=== PATIENT | female | born 1985 | race Caucasian/White ===

== ENCOUNTER 2019-08-23 15:20 | Emergency (ER) | payer SELFPAY ==
[~2019-08-23] VITALS: Ht 165 cm; Wt 103.3 kg
[2019-08-23] MEDS ORDERED: LIDOCAINE 1% INJ 20 ML 20 ML VIAL ONE (15:34)
[2019-08-23] MEDS ORDERED: LIDOCAINE 1% INJ 20 ML 20 ML VIAL INJ ONE (15:45)
[2019-08-23] MEDS ORDERED: TETANUS,DIPTH,PERTUSS P/F (BOOSTRIX) 0.5 ML VIAL IM ONE (15:45)
--- NOTE | 2019-08-23 16:02 | ED Upper Extremity ---
General Chief Complaint: Upper Extremity Stated Complaint: SMASHED FINGER Nursing Triage Note: Shut R first finger in car door and has small laceration on R index finger. Nursing Sepsis Screen: No Definite Risk History of Present Illness Date Seen by Provider: Aug 23, 2019 Time Seen by Provider: 16:00 Initial Comments Patient presenting to emergency department for evaluation of right index finger injury after she actually slammed her finger in a car door. There is obvious laceration to the pad of her finger and did the subungual hematoma as well. She does not think her tetanus is up-to-date so it will be updated here. Allergies and Home Medications Allergies Coded Allergies: No Known Drug Allergies (Unverified , 08/23/19) Patient Home Medication List Home Medication List Reviewed: Yes Review of Systems Constitutional: no symptoms reported Musculoskeletal: joint pain Skin: other (laceration) Psychiatric/Neurological: Denies Numbness, Denies Paresthesia Past Ywkgify-Qpbmjy-Svfsxb Hx Patient Social History Alcohol Use: Denies Use Recreational Drug Use: No Smoking Status: Current Everyday Smoker 2nd Hand Smoke Exposure: Yes Recent Foreign Travel: No Contact w/Someone Who Travel: No Recent Infectious Disease Expo: No Recent Hopitalizations: No Physical Abuse: No Sexual Abuse: No Mistreated: No Fear: No Seasonal Allergies Seasonal Allergies: No Past Medical History Surgeries: Yes Appendectomy Respiratory: No Cardiac: No Neurological: No Genitourinary: No Gastrointestinal: No Musculoskeletal: No Endocrine: No HEENT: No Cancer: No Psychosocial: No Integumentary: No Blood Disorders: No Adverse Reaction/Blood Tranf: No Physical Exam Vital Signs Vital Signs - First Documented 08/23/19 15:34 Temp 36.1 Pulse 87 Resp 16 B/P (MAP) 129/87 (101) Pulse Ox 97 Capillary Refill : Less Than 3 Seconds Height, Weight, BMI Height: '" Weight: lbs. oz. kg; 37.00 BMI Method: General Appearance: WD/WN, no apparent distress Hand: laceration (approximate 1.5 cm horizontal laceration to the pad of right index finger. There was debris and contamination in the wound appeared to be either piece of dirt or paint. Deeper structures including adipose and compartments visualized. No tendon visualized. There is approximately 25% subungual hematoma to the associated finger. Full flexion and extension of digits is intact with intact sensation and cap refill.) Neurologic/Tendon: normal sensation, normal motor functions, normal tendon functions Procedures/Interventions Wound Location: Upper Extremities Wound Length (cm): 1.5 Wound's Depth, Shape: sub Q Wound Explored: foreign body removed Irrigated w/ Saline (ccs): 1000 Betadine Prep?: Yes Anesthesia: 1% Lidocaine (digital block) Volume Anesthetic (ccs): 4 Wound Debrided: moderate Suture: Monocryl (4-0) Suture Size: 4-0 Number of Sutures: 4 Layer Closure?: 1 Sterile Dressing Applied?: Yes Progress Wound prepped and draped in normal sterile fashion and a digital block was performed and then wound was irrigated extensively under pressure with approximately 1 L of saline. Wound cleansed with chlorhexidine. 4-0 Monocryl was used and I tried to go to keep into the compartments while closing the l aceration. Progress/Results/Core Measures Results/Orders My Orders Orders - OSKAR ANDREWS DO Lidocaine 1% Inj 20 Ml (Xylocaine 1% Inj (08/23/19 15:45) Dipht,Pertuss(Acell),Tet Adult (Boostrix (08/23/19 15:45) Finger(S) (08/23/19 15:34) Lidocaine 1% Inj 20 Ml (Xylocaine 1% Inj (08/23/19 15:34) Medications Given in ED Current Medications Medications Dose Ordered Sig/Paul Route Start Time Stop Time Status Last Admin Dose Admin Diphtheria/ Tetanus/Acell Pertussis 0.5 ml ONCE ONCE IM 08/23/19 15:45 08/23/19 15:46 DC 08/23/19 16:05 0.5 ML Lidocaine HCl 10 ml ONCE ONCE INJ 08/23/19 15:45 08/23/19 15:46 DC 08/23/19 15:56 10 ML Vital Signs/I&O 08/23/19 15:34 Temp 36.1 Pulse 87 Resp 16 B/P (MAP) 129/87 (101) Pulse Ox 97 Blood Pressure Mean: 101 POS Progress Progress Note : Progress Note Contaminated wound was cleansed and irrigated and appears to be no retained foreign body or tendon injury. I told her to put ice on her pad as this could get quite swollen and there is don't structures in the compartments of pad. Recommended elevating her digit as well and ibuprofen as needed for pain. She was told to follow with primary care provider within 2-3 days to recheck for signs of infection and to return to the emergency department if needed for any concerns patient aware and agreeable with plan and verbalized understanding of the above instructions. Departure Impression Primary Impression: Laceration of finger Qualified Codes: S61.320A - Laceration with foreign body of right index finger with damage to nail, initial encounter Disposition: 01 HOME, SELF-CARE Condition: Stable Departure-Patient Inst. Patient Instructions: Laceration Repair With Stitches (DC) OSKAR ANDREWS DO Aug 23, 2019 16:02 POS
--- NOTE | 2019-08-23 16:06 | Diagnostic Imaging Report ---
INDICATION: Smashed finger, injury. COMPARISON: None available. TECHNIQUE: Three radiographs centered upon of the right hand 2nd digit dated August 23, 2019. FINDINGS: No acute fracture or dislocation. No destructive osseous process. No suspicious radiopaque foreign body. IMPRESSION: No acute osseous abnormality or suspicious radiopaque foreign body. Dictated by: Dictated on workstation # [id number]
[2019-08-23 16:23] VITALS: BP 120/76
== END 2019-08-23 16:22 | disposition home or self-care (01) ==
LOC: ER FS 15:22
DX: S61.320A Laceration with foreign body of right index finger with damage to nail, initial encounter (principal); F17.200 Nicotine dependence, unspecified, uncomplicated; Z90.49 Acquired absence of other specified parts of digestive tract; W23.0XXA Caught, crushed, jammed, or pinched between moving objects, initial encounter
CPT/HCPCS: 12001; 29130; 73140; 90471; 90715

== ENCOUNTER 2022-08-31 19:36 | Emergency (ER) | payer BC ==
[~2022-08-31] VITALS: Ht 165 cm; Wt 155.6 kg
[2022-08-31 19:42] VITALS: BP 150/102
[2022-08-31] MEDS ORDERED: AUGMENTIN 875 MG TAB (AMOXICILLIN/CLAVULANATE) PO SCH (20:15)
[2022-08-31] MEDS ORDERED: HYDROcodone/APAP 5 MG/325 MG (LORTAB) TAB PO ONE (20:15)
[2022-08-31] MEDS ORDERED: PENI500T PO (20:19)
[2022-08-31] MEDS ORDERED: ACHD5005 PO (20:19)
--- NOTE | 2022-08-31 20:19 | ED EENT ---
History of Present Illness General Chief Complaint: Dental Problems/Pain Stated Complaint: TOOTH PAIN,SWELLING Nursing Triage Note: PATIENT VERBALIZED RIGHT BACK TOOTH ACHE, STATES STARTED THREE DAYS AGO, DENTISIT CANT SEE PATIENT UNTIL WEDNESDAY. RT SIDE FACE SWOLLEN, EYE, STATES RUNNING A FEVER AT HOME 101. Source: patient Exam Limitations: no limitations History of Present Illness Date Seen by Provider: Aug 31, 2022 Time Seen by Provider: 19:45 Initial Comments Patient is a 37-year-old female presents with right upper incisor dental pain/tenderness for the past 3 days. Pain is moderate to severe nonradiating. No dysphonia drooling or trismus. Patient has an appointment with her dentist in 2 days. No other symptoms or complaints Timing/Duration: gradual Severity: severe Location: facial, dental Prearrival Treatment: other Modifying Factors: Improves With Other Associated Symptoms: other Allergies and Home Medications Allergies Coded Allergies: No Known Drug Allergies (Unverified , 08/23/19) Patient Home Medication List Home Medication List Reviewed: Yes Review of Systems Review of Systems Constitutional: see HPI Eyes: See HPI Ears: See HPI Nose: see HPI Mouth: see HPI Past Emjzanm-Fwlkoh-Lzhlzd Hx Patient Social History Tobacco Use?: No Seasonal Allergies Seasonal Allergies: No Past Medical History Surgeries: Yes Appendectomy Respiratory: No Cardiac: No Neurological: No Genitourinary: No Gastrointestinal: No Musculoskeletal: No Endocrine: No HEENT: No Cancer: No Psychosocial: No Integumentary: No Blood Disorders: No Adverse Reaction/Blood Tranf: No Physical Exam Vital Signs Vital Signs - First Documented 08/31/22 19:42 Temp 36.0 Pulse 84 Resp 18 B/P (MAP) 150/102 (118) Pulse Ox 100 O2 Delivery Room Air Height, Weight, BMI Height: '" Weight: lbs. oz. kg; 57.00 BMI Method: General Appearance: WD/WN, no apparent distress Eyes: bilateral eye other Ears: bilateral ear TM perforation Mouth/Throat: other (Right upper incisor pain/tenderness, no gingival swelling, facial swelling) Procedures/Interventions Suture Size: 4-0 Progress/Results/Core Measures Results/Orders My Orders Orders - HILDA ANGELES DO Amoxicillin/Clavulanate Tablet (Augmenti (08/31/22 20:15) Hydrocodone/Apap 5/325 Tablet (Lortab 5 (11/28/22 20:15) Vital Signs/I&O 08/31/22 19:42 Temp 36.0 Pulse 84 Resp 18 B/P (MAP) 150/102 (118) Pulse Ox 100 O2 Delivery Room Air Blood Pressure Mean: 118 Departure Communication (Admissions) Dental pain with tenderness. Recommendation therapeutic and supportive care with close dental follow-up Impression Primary Impression: Pain due to dental caries Disposition: HOME, SELF-CARE Condition: Stable Departure-Patient Inst. Decision time for Depature: 20:17 Referrals: PK ANDRE (PCP/Family) Primary Care Physician Patient Instructions: Dental Pain Add. Discharge Instructions: You were evaluated in the emergency department for dental pain. Please fill antibiotics and pain medications and take as directed. Follow-up with his dentist as scheduled. All discharge instructions reviewed with patient and/or family. Voiced understanding. Scripts Penicillin V Potassium (Penicillin V Potassium) 500 Mg Tablet 500 MG PO QID, #40 TAB Prov: HILDA ANGELES DO 08/31/22 Hydrocodone/Acetaminophen (Hydrocodone-Acetamin 5-325 mg) 5 Mg-325 Mg Tablet 1 TAB PO Q4H PRN for PAIN-MODERATE (5-7), #10 TAB Prov: HILDA ANGELES DO 08/31/22 HILDA ANGELES DO Aug 31, 2022 20:19
== END 2022-08-31 21:00 | disposition home or self-care (01) ==
LOC: EDUNIT# 19:36 → ER FS 19:37
DX: K02.9 Dental caries, unspecified (principal); Z28.310 Unvaccinated for COVID-19
CPT/HCPCS: 99283